=== PATIENT | female | born 1940 | race Caucasian/White ===

== ENCOUNTER → 2020-05-20 13:33 | Outpatient (REF) | payer MEDICARE, OTHER, SELFPAY ==
--- NOTE | 2020-05-20 13:30 | ECG_ITS ---
Hook-up date: 2020-05-20 13:57:00 Duration: 25:01:00 Test Indications: MULTIPLE CEREBRAL INFARCTIONS Medications: 54318 QRS complexes 254 Ventricular ectopics which represent <1 % of total QRS comp. 6806 Supraventricular ectopics which represent 8 % of total QRS comp. * Paced QRS complexs which represent % of total QRS comp. VENTRICULAR ECTOPY 254 Isolated 0 Bigeminal Cycles 0 Couplets 0 Runs 0 Beats in Runs * Beats LONGEST at * BPM at :: -- * Beats FASTEST at * BPM at :: -- SUPRAVENTRICULAR ECTOPY 6760 Isolated 10 Couplets 7 Runs 26 Beats in Runs 5 Beats LONGEST at 97 BPM at 18:42:32 2020-05-20 3 Beats FASTEST at 136 BPM at 18:01:16 2020-05-20 HEART RATES 45 MIN at 12:28:30 2020-05-21 58 AVG 90 MAX at 13:59:49 2020-05-20 LONGEST RR 1.7120 secs at 12:28:24 2020-05-21 S-T LEVELS Channel 1 - 128 mm at 13:57:00 2020-05-20 - 128 mm at 13:57:00 2020-05-20 Channel 2 - 128 mm at 13:57:00 2020-05-20 - 128 mm at 13:57:00 2020-05-20 Channel 3 - 128 mm at 03:31:61 -- - 128 mm at 03:31:61 Basic rhythm Normal sinus rhythm No long pause or profound bradycardia Frequent Sinus bradycardia , 74% of time HR < 60 bpm Occasional Premature ventricular complexes Frequent Premature atrial complexes No sustained Atrial fibrillation Patient did not report any symptoms in the diary Referred By: Clemencia Hernandez Overread By: ADAIR MORGAN MD
== END ==
LOC: HO.CARD 13:33
PROVIDERS: Visit Provider Psychiatry & Neurology Neurology
DX: I63.50 Cerebral infarction due to unspecified occlusion or stenosis of unspecified cerebral artery (principal); I49.3 Ventricular premature depolarization; I49.1 Atrial premature depolarization
CPT/HCPCS: 93225; 93226

== ENCOUNTER → 2020-08-02 08:53 | Outpatient (BNVA) | payer MEDICARE, OTHER, SELFPAY | PROVIDERS: PCP Nurse Practitioner Family; Visit Provider Internal Medicine | DX: I63.40 Cerebral infarction due to embolism of unspecified cerebral artery (principal); I44.7 Left bundle-branch block, unspecified; I10 Essential (primary) hypertension; E78.5 Hyperlipidemia, unspecified | CPT/HCPCS: 99212 ==

== ENCOUNTER → 2021-01-31 09:02 | Outpatient (BNVA) | payer MEDICARE, OTHER, SELFPAY | PROVIDERS: PCP Nurse Practitioner Family; Visit Provider Internal Medicine | DX: I63.40 Cerebral infarction due to embolism of unspecified cerebral artery (principal); I44.7 Left bundle-branch block, unspecified; I10 Essential (primary) hypertension; E78.5 Hyperlipidemia, unspecified | CPT/HCPCS: 93005; 99212 ==

== ENCOUNTER → 2021-08-30 10:13 | Outpatient (BNVA) | payer MEDICARE, OTHER, SELFPAY | PROVIDERS: PCP Nurse Practitioner Family; Visit Provider Internal Medicine | DX: I10 Essential (primary) hypertension (principal); I44.7 Left bundle-branch block, unspecified; E78.5 Hyperlipidemia, unspecified; Z86.73 Personal history of transient ischemic attack (TIA), and cerebral infarction without residual deficits | CPT/HCPCS: 99212 ==

== ENCOUNTER → 2022-08-30 09:43 | Outpatient (BNVA) | payer MEDICARE, OTHER, SELFPAY | PROVIDERS: PCP Nurse Practitioner Family; Referring Provider Nurse Practitioner Family; Visit Provider Internal Medicine | DX: I44.7 Left bundle-branch block, unspecified (principal); I63.40 Cerebral infarction due to embolism of unspecified cerebral artery; I34.81 Nonrheumatic mitral (valve) annulus calcification; I10 Essential (primary) hypertension; E78.5 Hyperlipidemia, unspecified | CPT/HCPCS: 93005; 99212 ==

== ENCOUNTER → 2023-08-24 08:03 | Outpatient (REF) | payer MEDICARE, OTHER, SELFPAY ==
--- NOTE | 2023-08-24 08:06 | CA_ITS ---
Transthoracic Echocardiogram Amended Patient (Last, First, Middle): Tanna Gates, Gender: Female Date of : 1940 Age: 83 Procedure Date: 08/24/2023 Procedure Type: Transthoracic Echocardiogram Location: OP Height: 152.4 cm Weight: 68.95 kg BSA: 1.66 m2 Heart Rate: bpm BP: 140 / 60 mmHg High School Sports Coach: TO Referring MD: Kevin Ravi MD Fireproof Door Maker: Ben Zuniga MD Symptoms: I34.81 - Nonrheumatic mitral (valve) annulus calcification Study Quality: Fair ECG Rhythm: Sinus Conclusions: - 1. Normal LV ejection fraction of 60 65% with impaired relaxation filling pattern suggestion of elevated left ventricular end-diastolic pressure 2. At least moderately dilated left atrium 3. Severe mitral calcification without clear evidence of significant mitral stenosis 4. Upper limits of normal right ventricular systolic pressure 5. No gross pericardial effusion Findings Left Ventricle Normal left ventricular size, thickness, and systolic function. The visually estimated ejection fraction is between 60-65%. Spectral Doppler is indicative of an impaired relaxation filling pattern. Elevated filling pressures. There is mild septal asymmetric hypertrophy. Peak GLS is -17.9%, borderline normal. Right Ventricle Normal right ventricular cavity size and systolic function. Atria The left atrium is moderately dilated. There is no evidence of interatrial shunt. The right atrium is likely dilated. Aortic Valve There is mild calcification of the aortic valve. There is no aortic valve stenosis. There is no aortic valve regurgitation. Mitral Valve There is mild anterior and severe posterior mitral leaflet thickening. There is severe mitral annular calcification. There is trace mitral valve regurgitation. There is no mitral valve stenosis. Pulmonic Valve The pulmonic valve is likely normal. Tricuspid Valve Normal tricuspid valve structure. There is mild tricuspid valve regurgitation. The right ventricular systolic pressure is normal. The right ventricular systolic pressure is 36 mmHg. Normal right atrial pressure. There is no evidence of pulmonary hypertension. Great Vessels The pulmonary artery was not well visualized. Moderate plaque is seen in the sino tubular ridge. Venous The inferior vena cava is normal in size and collapses greater than 50% with inspiration. Pericardium/Pleural There is no evidence of pericardial effusion. Prior Study Comparison No significant change compared to prior study dated: 03/24/2020. Measurements 2D Linear Measurements IVSd: 1.21 0.6-0.9/0.6-1.0 cm LVIDd: 3.42 3.9-5.3/4.2-5.9 cm LVIDd Index: 2.06 2.4-3.2/2.2-3.1 cm/m2 LVIDs: 2.35 2.0-3.6 cm LVPWd: 1.04 0.7-1.1 cm LA Diam: 3.40 2.7-3.8/3.0-4.0 cm LAIDs Index: 2.05 1.5-2.3 cm/m2 LV Mass: 147.97 67-162/88-224 g LV Mass Index: 89.14 43-95/49-115 g/m2 LVOT Diam: 1.80 3.0+(-)1.3 cm 2D Volumes LA Vol: 43.00 2D Systolic Function EF 4C: 59.80 >55% EF 2C: 63.60 >55% EF BiP: 61.80 >55% Mitral Valve MV VTI: 0.56 MV Pk Paul: 1.65 MV Mn Paul: 0.89 MV Pk Grad: 11.00 MV Mn Grad: 4.00 MV Pk E: 1.19 MV PK A: 1.41 MV Decel Time: 186.00 E/A: 0.80 E'Lateral: 5.33 E'Medial: 3.81 E/E' Med: 31.20 E/E' Lat: 22.30 PHT: 54.00 MVA PHT: 4.07 MVA Continuity: 1.25 Decel Huron: 6.41 Aortic Valve AoV Pk Paul: 1.52 AoV Mn Paul: 1.02 AoV VTI: 0.38 AoV Pk Grad: 9.00 Aov Mn Grad: 5.00 BHAVIN Cont.VTI: 1.86 LVOT LVOT Pk Paul: 0.98 LVOT Mn Paul: 0.68 LVOT VTI: 0.28 LVOT Pk Grad: 4.00 LVOT Mn Grad: 2.00 LVOT Diam: 1.80 LVOT Area: 2.54 Diastolic Function MV Pk E: 1.19 MV Pk A: 1.41 E/A: 0.80 E'Medial: 3.81 E/E' Med: 31.20 E' Laterial: 5.33 E/E' Lat: 22.30 Right Ventricle TAPSE (mm): 29.30 TVS' Paul: 9.79 Tricuspid Valve TR Pk Paul: 2.86 TR Pk Grad: 33.00 RA Press: 3.00 RVSP: 36.00 Great Vessels Aorta Sinus of Valsalva: 3.48 2.0-3.[address] Ridge: 2.09 1.7-3.4 cm Ao Asc: 3.40 2.1-3.4 cm Updated in Other Vendor System with Status of Final Ben Zuniga MD electronically signed on 08/25/2023 11:57:37 AM with status of Final
== END ==
LOC: HO.CARD 08:03
PROVIDERS: PCP Nurse Practitioner Family; Visit Provider Internal Medicine
DX: I34.81 Nonrheumatic mitral (valve) annulus calcification (principal); I44.7 Left bundle-branch block, unspecified; I63.40 Cerebral infarction due to embolism of unspecified cerebral artery
CPT/HCPCS: 93306; 93356

== ENCOUNTER → 2023-08-24 08:06 | Outpatient (BNV) | payer MEDICARE, OTHER, SELFPAY | PROVIDERS: PCP Nurse Practitioner Family; Visit Provider Internal Medicine Cardiovascular Disease | DX: I34.81 Nonrheumatic mitral (valve) annulus calcification (principal); I36.1 Nonrheumatic tricuspid (valve) insufficiency | CPT/HCPCS: 93306 ==

== ENCOUNTER 2023-09-11 08:16 | Outpatient (AMB) | payer MEDICARE, OTHER, SELFPAY ==
--- NOTE | 2023-09-11 08:31 | MHC.OFFVIS ---
Intake Vital Signs 09/11/23 08:32 Height 5 ft 2 in Weight 154 lb 5.177 oz BMI 28.2 BP 144/70 H Blood Pressure Location Lt brachial Position Sitting Pulse 59 Intake Visit Reasons: 1 yr s/p echo Intake Note: 1 year follow up w/ EKG Hemming And Tacking Machine Operator Required: No Accompanied by: Self / Same As Patient Allergies No Known Allergies [No Known Allergies*] Allergy (Verified 09/11/23 08:32) Medication List - Last Reconciled 09/11/23 by Kevin Ravi MD acetaminophen (Tylenol Extra Strength) 500 mg PO Q6H PRN apixaban 5 mg PO BID atorvastatin 80 mg PO DAILY carvedilol 6.25 mg PO BID cholestyramine-aspartame 4 gram PO PRN losartan 100 mg PO DAILY omeprazole 20 mg PO DAILY spironolactone 12.5 mg PO DAILY HPI HPI Comments History of Present Illness Details Tanna returns for follow-up. History of suspected embolic stroke and she also has left bundle-branch block on EKG. Otherwise, hypertension, high lipids. In 2019, she was hospitalized with left upper extremity weakness and diagnosed to have embolic stroke. Prior to the onset of weakness she also had some chest discomfort that resolved spontaneously. Empirically, she was started on anticoagulation. Overall, doing good. No new complaints. [facility], [facility] Medical History (Updated 08/30/22 @ 10:18 by Kevin Ravi MD) Mitral annular calcification History of DVT (deep vein thrombosis) Other and unspecified hyperlipidemia Essential hypertension LBBB (left bundle branch block) Cerebral infarction due to embolism of unspecified cerebral artery Surgical History History of hemorrhoidectomy History of bilateral knee replacement History of total hysterectomy History of tonsillectomy History of cholecystectomy Family History Father No problems noted. Mother No problems noted. Social History Patient Tobacco Use Status: Never used Tobacco Review of Systems Const Denies weakness ENT Denies dizziness Card Denies chest pain, Denies chest pain with activity, Denies syncope, Denies rapid heart rate, Denies pedal edema, Denies edema, Denies leg edema, Denies lightheadedness, Denies palpitations, Denies dyspnea, Denies dyspnea on exertion and Denies orthopnea Resp Denies cough, Denies dyspnea and Denies dyspnea on exertion GI Denies hematochezia and Denies change in stool character Musc Denies abnormal gait, Denies muscle cramps, Denies muscle weakness, Denies numbness, Denies radiating pain into limb and Denies tingling Neuro Denies abnormal gait, Denies dizziness, Denies syncope, Denies numbness, Denies tingling and Denies weakness Endo Denies palpitations Physical Exam Vital Signs: Last Vital Signs Pulse 59 09/11/23 08:32 BP 144/70 H 09/11/23 08:32 BMI result Body Mass Index 28.2 Const General: comfortable and no acute distress Orientation/consciousness: patient oriented x3 HEENT Other: Unremarkable Head: Yes normal to inspection Neck Neck: Yes normal visual inspection Chest Chest palpation & inspection: normal inspection of the chest Resp Auscultation: clear to auscultation bilaterally Cardio Palpation: normal PMI Heart sounds: S1 normal heart sound present, S2 normal heart sound present, no gallops, no murmurs and no rubs GI Palpation (GI): Soft to palpation Back/Spine/Pelvis Other: unremarkable Skin General skin exam: no rashes or lesions noted Neuro General: patient oriented x3 Extrem General: Yes normal to inspection Psych Mental Status: mental status grossly normal Office Procedures EKG Details: EKG with sinus rhythm; 59/Min; borderline CO at 212 milliseconds; left bundle-branch block pattern. [id number], Complete Assessment & Plan Assessment & Plan (1) Cerebral infarction due to embolism of unspecified cerebral artery: Code(s): I63.40 - Cerebral infarction due to embolism of unspecified cerebral artery (2) Mitral annular calcification: Code(s): I34.81 - Nonrheumatic mitral (valve) annulus calcification (3) LBBB (left bundle branch block): Code(s): I44.7 - Left bundle-branch block, unspecified (4) Essential hypertension: Code(s): I10 - Essential (primary) hypertension (5) Other and unspecified hyperlipidemia: Code(s): E78.5 - Hyperlipidemia, unspecified Plan Cardiac studies reviewed. Echocardiogram with LVEF of 60-65%; severe mitral annular calcification Myocardial perfusion imaging study shows no ischemia. Carotid Doppler without any hemodynamically significant stenosis. Brain MRI suggests multiple vascular territory distribution embolic infarcts. She can remain on Eliquis without changes. For hypertension, she has on a combination of carvedilol, losartan, spironolactone. She has not clear about the doses. No changes made. Per [facility] notes, it seems there was some hyponatremia issues and at that time HCTZ discontinued. For dyslipidemia, on atorvastatin 80 mg daily. Last LDL 36 mg/dL. Triglycerides 199 mg/dL. Follow-up in 1 year. In the interim, call with concerns. Coding Level of Care Code Est Pt Level 4 (28166) Diagnoses Cerebral infarction due to embolism of unspecified cerebral artery I63.40 Mitral annular calcification I34.81 LBBB (left bundle branch block) I44.7 Essential hypertension I10 Other and unspecified hyperlipidemia E78.5 CPT Codes EKG - CPT: 07407-[id number], Complete ([id number])
[2023-09-11 08:32] VITALS: BP 144/70; PULSE 59; BMI 28.2
== END 2023-09-11 09:45 | disposition home or self-care (01) ==
PROVIDERS: PCP Nurse Practitioner Family; Visit Provider Internal Medicine
DX: I63.40 Cerebral infarction due to embolism of unspecified cerebral artery (principal); I34.81 Nonrheumatic mitral (valve) annulus calcification; I44.7 Left bundle-branch block, unspecified; I10 Essential (primary) hypertension; E78.5 Hyperlipidemia, unspecified
CPT/HCPCS: 93010; 99214

== ENCOUNTER → 2023-09-11 08:16 | Outpatient (BNVA) | payer MEDICARE, OTHER, SELFPAY | PROVIDERS: PCP Nurse Practitioner Family; Visit Provider Internal Medicine | DX: I63.40 Cerebral infarction due to embolism of unspecified cerebral artery (principal); I34.81 Nonrheumatic mitral (valve) annulus calcification; I44.7 Left bundle-branch block, unspecified; I10 Essential (primary) hypertension; E78.5 Hyperlipidemia, unspecified | CPT/HCPCS: 93005; 99212 ==

== ENCOUNTER 2024-08-26 08:11 | Outpatient (AMB) | payer MEDICARE, OTHER, SELFPAY ==
--- OUTSIDE RECORDS SUMMARY | 2024-08-26 08:13 | XMS_ITS | Encounter Summary ---
Author Organization [facility], Address [address] [place] [address] Phone Care Team Providers Care Crating And Moving Estimator Name Role Phone Lydia Garzon STAVE LOG CUT OFF SAW OPERATOR Primary Care Provider [phone] Encounter Details Date Type Department Care Team (Late st Contact Info) Description 12/13/2022 Documentation Only [facility], [address] [place] [address] Jose Wolf [address] [place] [phone] Social History Tobacco Use Types Packs/Day Years Used Date Smoking Tobacco: Never Assessed Comments Unknown Sex and Gender Information Value Date Recorded Sex Assigned at Not on file Legal Sex Female 11:45 AM EST Gender Identity Not on file Sexual Orientation Not on file documented as of this encounter Plan of Treatment Not on file documented as of this encounter Visit Diagnoses Not on filedocumented in this encounter Care Teams Crating And Moving Estimator Relationship Specialty Start Date End Date Lydai Garzon NP [address] [place] [phone] PCP - General Nurse Practitioner 07/22/19 documented as of this encounter
--- OUTSIDE RECORDS SUMMARY | 2024-08-26 08:13 | XMS_ITS | Encounter Summary ---
Author Organization [facility], Address [address] [place] [address] Phone Care Team Providers Care Vacuum Cleaner Operator Name Role Phone Lydia Garzon UTILITY HELICOPTER REPAIRER Primary Care Provider [phone] Encounter Details Date Type Department Care Team (Late st Contact Info) Description 11/28/2022 Documentation Only [facility], [address] [place] [address] Jose Wolf [address] [place] [phone] Social History Tobacco Use Types Packs/Day Years [...] on filedocumented in this encounter Care Teams Vacuum Cleaner Operator Relationship Specialty Start Date End Date Lydia Garzon NP [address] [place] [phone] PCP - General Nurse Practitioner 07/22/19 documented as of this encounter
--- OUTSIDE RECORDS SUMMARY | 2024-08-26 08:13 | XMS_ITS | Encounter Summary ---
Author Organization [facility], Address [address] [place] [address] Phone Care Team Providers Care Hotel Service Supervisor Name Role Phone Lydia Garzon SR. PAYROLL MANAGER Primary Care Provider [phone] Encounter Details Date Type Department Care Team (Late st Contact Info) Description 12/15/2022 Documentation Only [facility], [address] [place] [address] Jose Wolf [address] [place] [phone] Social History Tobacco Use Types Packs/Day Years [...] on filedocumented in this encounter Care Teams Hotel Service Supervisor Relationship Specialty Start Date End Date Lydia Garzon NP [address] [place] [phone] PCP - General Nurse Practitioner 07/22/19 documented as of this encounter
--- OUTSIDE RECORDS SUMMARY | 2024-08-26 08:13 | XMS_ITS | Encounter Summary ---
Author Organization [facility], Address [address] [place] [address] Phone Care Team Providers Care Machine Cloth Examiner Name Role Phone Lydia Garzon FINANCE BUSINESS PARTNER Primary Care Provider [phone] Encounter Details Date Type Department Care Team (Late st Contact Info) Description 11/28/2022 Documentation Only [facility], [address] [place] [address] Jose Wolf [address] [place] [phone] Social History Tobacco Use Types Packs/Day Years [...] on filedocumented in this encounter Care Teams Machine Cloth Examiner Relationship Specialty Start Date End Date Lydia Garzon NP [address] [place] [phone] PCP - General Nurse Practitioner 07/22/19 documented as of this encounter
--- OUTSIDE RECORDS SUMMARY | 2024-08-26 08:13 | XMS_ITS | Encounter Summary ---
Author Organization [facility], Address [address] [place] [address] Phone Care Team Providers Care Court Deputy Name Role Phone Lydia Garzon PARCEL POST ORDER CLERK Primary Care Provider [phone] Encounter Details Date Type Department Care Team (Late st Contact Info) Description 01/04/2023 Documentation Only [facility], [address] [place] [address] Jose Wolf [address] [place] [phone] Social History Tobacco Use Types Packs/Day Years Used Date Smoking Tobacco: Never Smokeless Tobacco: Never Comments Unknown Sex and Gender Information Value Date Recorded Sex Assigned at Not on file Legal Sex Female 11:45 AM EST Gender Identity Not on file Sexual Orientation Not on file documented as of this encounter Plan of Treatment Not on file documented as of this encounter Visit Diagnoses Not on filedocumented in this encounter Care Teams Court Deputy Relationship Specialty Start Date End Date Lydia Garzon NP [address] [place] [phone] PCP - General Nurse Practitioner 07/22/19 documented as of this encounter
--- OUTSIDE RECORDS SUMMARY | 2024-08-26 08:13 | XMS_ITS | Clinical Summary ---
Author Organization [employer] Address [address] 7 [place] [address] Care Team Providers Care Microgrinder Operator Name Role Phone Unavailable Primary Care Provider Unavailabl e Immunizations Name Administration Dates Next Due Influenza Whole 04/12/2011,04/21/2009,05/23/2008 Influenza, IIV3, injectable 04/16/2023,1 ,04/16/2020,05/16,04/12/2017,05/11/2016,04/26/2015 ,04/27/2014,04/27/2014,04/28/2013,04/23 Influenza, seasonal, injecta ble, preservative free 04/14/2024 Pfizer Covid-19 Vaccine 12+ 04/14/2024 Pneumococcal Conjugate PCV 13 10/26/2014 Pneumococcal Polysaccharide PPSV23 04/21/2009 Tdap 01/15/2008 Zoster, live 06/03/2012 Social History Tobacco Use Types Packs/Day Years Used Date Smoking Tobacco: Never Assessed Comments Unknown Sex and Gender Information Value Date Recorded Sex Assigned at Female 04/16/2024 9:56 AM EDT Legal Sex Female 9:54 AM EDT Gender Identity Female 04/16/2024 9:56 AM EDT Sexual Orientation Straight 04/16/2024 9: 56 AM EDT Plan of Treatment Health Maintenance Due Date Last Done Comments Depression Screening 1940 Lipid Panel 1940 SDOH Screening 1940 Alcohol/Substance Use Screening 1954 Tobacco Screening 1952 Zoster Vaccines (2 of 3) 07/29/2012 06/03/2012 RSV Patients and Patients Aged 60 years or older (1 - 1-dose 75+ series) 2017 DTaP/Tdap/Td Vaccines (2 - Td or Tdap) 01/14/2018 01/15/2008 Pneumococcal Vaccine: 50+ Years Completed 10/26/2014, 04/21/2009 COVID-19 Vaccine Completed 04/14/2024, , 01/11/2022, Additional history exists Influenza Vaccine Completed 04/14/2024, , 05/08/2022, Additional history exists HIB Vaccines Aged Out No longer eligi ble based on patient's age to complete this topic HPV Vaccines Aged Out No longer eligi ble based on patient's age to complete this topic Hepatitis A Vaccines Aged Out No long er eligible based on patient's age to complete this topic Hepatitis B Vaccines Aged Out No long er eligible based on patient's age to complete this topic IPV Vaccines Aged Out No longer eligi ble based on patient's age to complete this topic Meningococcal Vaccine Aged Out No faisal radames eligible based on patient's age to complete this topic RSV under 20 months Aged Out No longe r eligible based on patient's age to complete this topic Rotavirus Vaccines Aged Out No longer eligible based on patient's age to complete this topic Insurance [facility] Member Subscriber Plan / Payer (Ef fective 2024-Present) Name:Tanna Gates Relation to Subscriber:Self Name:Tanna Gates Payer ID:Not on file Group ID:Not on file Type:Not on file Address: [address] [id number] MEDICARE
--- OUTSIDE RECORDS SUMMARY | 2024-08-26 08:13 | XMS_ITS | Encounter Summary ---
Author Organization [facility], Address [address] [place] [address] Phone Care Team Providers Care Cattle Producers Name Role Phone Lydia Garzon FINANCIAL AID ADVISOR Primary Care Provider [phone] Encounter Details Date Type Department Care Team (Late st Contact Info) Description 12/15/2022 Documentation Only [facility], [address] [place] [address] Jose Wolf [address] [place] [phone] Social History Tobacco Use Types Packs/Day Years [...] on filedocumented in this encounter Care Teams Cattle Producers Relationship Specialty Start Date End Date Lydia Garzon NP [address] [place] [phone] PCP - General Nurse Practitioner 07/22/19 documented as of this encounter
--- OUTSIDE RECORDS SUMMARY | 2024-08-26 08:13 | XMS_ITS | Clinical Summary ---
Author Organization [facility] Facility Address [address] [address] Care Team Providers Care Furnace Erector Name Role Phone Lydia Garzon NIGHT GUARD Primary Care Provider [phone] Allergies Active Allergy Reactions Criticality Noted Date Comments Oxcarbazepine 11/29/2022 Medications atorvastatin (LIPITOR) 80 MG tablet Take 80 mg by mouth 1 (one) time each day 10/08/2022 Active carvedilol (COREG) 25 MG tablet Take 25 mg by mouth 12/29/2022 Active Eliquis 5 MG tablet Take 5 mg by mouth 11/11/2022 Active gabapentin (NEURONTIN) 100 MG capsule TAKE 1 CAPSULE BY MOUTH IN MORNING AND LUNCH TIME THEN AT BEDTIME TAKE 2 CAPSULES 12/25/2022 Active losartan (COZAAR) 50 MG tablet Take 100 mg by mouth 1 (one) time each day 12/28/2022 Active omeprazole (PriLOSEC) [address] capsule Take by mouth 1 (one) time each day 11/25/2022 Active spironolactone (ALDACTONE) 25 MG tablet TAKE 1/2 TABLET BY MOUTH DAILY,INSTR:W ITH MEALS 12/25/2022 Active Active Problems Problem Noted Date Diagnosed Date Essential hypertension 11/29/2022 Trigeminal neuralgia 11/27/2022 Family History Medical History Relation Comments Heart disease Father Diabetes Mother Hypertension Mother Relation Status Comments Father Mother Social History Tobacco Use Types Packs/Day Years Used Date Smoking Tobacco: Never Smokeless Tobacco: Never Tobacco Cessation:Counseling Given: Not Answered Comments Unknown Sex and Gender Information Value Date Recorded Sex Assigned at Not on file Legal Sex Female 11:45 AM EST Gender Identity Not on file Sexual Orientation Not on file Plan of Treatment Health Maintenance Due Date Last Done Comments Pneumococcal Vaccine: 65+ Ye ars (1 of 1 - PCV) 2007 Influenza Vaccine (#1) 2024 Hepatitis B Vaccine Aged Out No longe r eligible based on patient's age to complete this topic Insurance MEDICARE [facility] Care Teams Furnace Erector Relationship Specialty Start Date End Date Lydia Garzon NP [address] [place] [phone] PCP - General Nurse Practitioner 07/22/19
[2024-08-26 08:28] VITALS: BP 158/70; PULSE 56; BMI 28.6
--- NOTE | 2024-08-26 08:28 | MHC.OFFVIS ---
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 History of suspected embolic stroke and she also has left bundle-branch block on EKG. Otherwise, hypertension, high lipids. In 2019, she was hospitalized with left upper extremity weakness and diagnosed to have embolic stroke. Prior to the onset of weakness she also had some chest discomfort that resolved spontaneously. Empirically, she was started on anticoagulation. Since last seen, she states she is feeling fine. She does not have any complaints like angina or shortness of breath or palpitations or in fact anything of cardiac type. Blood pressure is high today but she states that she checks some at home and it is no more than 130s systolic. Normal diastolic. [facility] Medical History (Updated 08/30/22 @ 10:18 by Kevin Ravi MD) Mitral annular calcification History of DVT (deep vein thrombosis) Other and unspecified hyperlipidemia Essential hypertension LBBB (left bundle branch block) Cerebral infarction due to embolism of unspecified cerebral artery Surgical History History of hemorrhoidectomy History of bilateral knee replacement History of total hysterectomy History of tonsillectomy History of cholecystectomy Family History Father No problems noted. Mother No problems noted. Social History (Updated 08/26/24 @ 08:34 by Zhane Bear CMA) Alcohol intake: current Alcohol intake frequency: holidays/special occasions only Patient Tobacco Use Status: Never used Tobacco Review of Systems Const Denies chills, Denies fatigue, Denies fever(s), Denies weight gain and Denies weight loss ENT Denies dizziness Card Denies chest pain, Denies leg edema, Denies lightheadedness, Denies palpitations, Denies dyspnea on exertion, Denies orthopnea and Denies other Resp Denies cough and Denies dyspnea on exertion GI Denies hematochezia and Denies change in stool character Musc Denies abnormal gait, Denies muscle weakness, Denies numbness, Denies radiating pain into limb and Denies tingling Neuro Denies abnormal gait, Denies dizziness, Denies numbness and Denies tingling Endo Denies fatigue and Denies palpitations Physical Exam Vital Signs: Last Vital Signs Pulse 56 08/26/24 08:28 BP 158/70 H 08/26/24 08:28 BMI result Body Mass Index 28.6 Const General: comfortable and no acute distress Orientation/consciousness: patient oriented x3 HEENT Other: Unremarkable Head: Yes normal to inspection Neck Neck: Yes normal visual inspection Chest Chest palpation & inspection: normal inspection of the chest Resp Auscultation: clear to auscultation bilaterally Cardio Palpation: normal PMI Heart sounds: S1 normal heart sound present, S2 normal heart sound present, no gallops, no murmurs and no rubs GI Palpation (GI): Soft to palpation Back/Spine/Pelvis Other: unremarkable Skin General skin exam: no rashes or lesions noted Neuro General: patient oriented x3 Extrem General: Yes normal to inspection Psych Mental Status: mental status grossly normal Office Procedures EKG Details: EKG with underlying sinus bradycardia at 56/Min; MI prolongation to 218 milliseconds; nonspecific intraventricular conduction defect; lateral T inversions. [id number], Complete Assessment & Plan Assessment & Plan (1) Cerebral infarction due to embolism of unspecified cerebral artery: Code(s): I63.40 - Cerebral infarction due to embolism of unspecified cerebral artery Category: Medical (2) Mitral annular calcification: Code(s): I34.81 - Nonrheumatic mitral (valve) annulus calcification Category: Medical (3) LBBB (left bundle branch block): Code(s): I44.7 - Left bundle-branch block, unspecified Category: Medical (4) Essential hypertension: Code(s): I10 - Essential (primary) hypertension Category: Medical (5) Other and unspecified hyperlipidemia: Code(s): E78.5 - Hyperlipidemia, unspecified Category: Medical Plan Cardiac studies reviewed. Echocardiogram with LVEF of 60-65%; severe mitral annular calcification. Myocardial perfusion imaging study shows no ischemia. Carotid Doppler without any hemodynamically significant stenosis. Brain MRI suggests multiple vascular territory distribution embolic infarcts. She can remain on Eliquis without changes. For hypertension, she has on a combination of carvedilol, losartan, spironolactone. Blood pressure is high today but she states home blood pressures are only the 130s systolic. No changes made. Per [facility] notes, it seems there was some hyponatremia issues and at that time HCTZ discontinued. For dyslipidemia, on atorvastatin 80 mg daily. Last available LDL 36 mg/dL. Triglycerides 199 mg/dL. Follow-up in 1 year. Advised her to contact us if any issues otherwise. Coding Level of Care Code Est Pt Level 4 (63807) Diagnoses Cerebral infarction due to embolism of unspecified cerebral artery I63.40 Mitral annular calcification I34.81 LBBB (left bundle branch block) I44.7 Essential hypertension I10 Other and unspecified hyperlipidemia E78.5 CPT Codes EKG - CPT: 27711-[id number], Complete ([id number])
== END 2024-08-26 08:47 | disposition home or self-care (01) ==
PROVIDERS: PCP Nurse Practitioner Family; Visit Provider Internal Medicine
DX: I63.40 Cerebral infarction due to embolism of unspecified cerebral artery (principal); I34.81 Nonrheumatic mitral (valve) annulus calcification; I44.7 Left bundle-branch block, unspecified; I10 Essential (primary) hypertension; E78.5 Hyperlipidemia, unspecified
CPT/HCPCS: 93010; 99214

== ENCOUNTER → 2024-08-26 08:11 | Outpatient (BNVA) | payer MEDICARE, OTHER, SELFPAY | PROVIDERS: PCP Nurse Practitioner Family; Visit Provider Internal Medicine | DX: I44.7 Left bundle-branch block, unspecified (principal); I34.81 Nonrheumatic mitral (valve) annulus calcification; I10 Essential (primary) hypertension; E78.5 Hyperlipidemia, unspecified; Z79.01 Long term (current) use of anticoagulants; Z86.73 Personal history of transient ischemic attack (TIA), and cerebral infarction without residual deficits | CPT/HCPCS: 93005; 99212 ==